=== PATIENT | female | born 1990 | race Caucasian/White ===

== ENCOUNTER 2019-11-29 11:52 | Emergency (ER) | payer MEDICAID, OTHER ==
[~2019-11-29] VITALS: Ht 167.6 cm; Wt 59.9 kg
--- NOTE | 2019-11-29 13:14 | NUR ---
IV removed. Catheter intact and site benign. Pressure and 4x4 gauze applied to site. No bleeding noted. Patient is for discharge to home. Stable for discharge per Dr Wood. Written and verbal after care instructions given to patient. Patient verbalized understanding & compliance of instructions. Patient said that she will wait for her sister in the room (ER bed 5A).
[2019-11-29 13:16] VITALS: BP 120/71
== END 2019-11-29 13:16 | disposition home or self-care (01) ==
LOC: ER 11:52
DX: O99.341 Other mental disorders complicating pregnancy, first trimester (principal); F41.9 Anxiety disorder, unspecified; Z3A.01 Less than 8 weeks gestation of pregnancy
CPT/HCPCS: 76856; A4663